=== PATIENT | female | born 1995 | race Caucasian/White ===

== ENCOUNTER 2017-09-09 02:45 | Emergency (ER) | payer SELFPAY ==
[~2017-09-09] VITALS: Ht 167.6 cm; Wt 72.7 kg
[2017-09-09 02:51] VITALS: BP 116/69; TEMP 97.8
[2017-09-09] MEDS ORDERED: Antidepressant (02:53)
[2017-09-09] MEDS ORDERED: ADDERALL20 MG PO (02:53)
[2017-09-09] MEDS ORDERED: CRUTCHES MC (04:28)
[2017-09-09] MEDS ORDERED: NORCO 325 MG-51 TAB PO (04:28)
[2017-09-09 04:48] VITALS: PULSE 110
== END 2017-09-09 04:50 | disposition home or self-care (01) ==
LOC: COL.ER 02:45
DX: S93.401A Sprain of unspecified ligament of right ankle, initial encounter (principal); F32.9 Major depressive disorder, single episode, unspecified; X50.0XXA Overexertion from strenuous movement or load, initial encounter; Y92.59 Other trade areas as the place of occurrence of the external cause
CPT/HCPCS: Q4045